=== PATIENT | male | born 1960 | race Caucasian/White ===

== ENCOUNTER 2016-12-28 12:33 | Emergency (ER) | payer OTHER ==
--- NOTE | ~2016-12-28 | CT71 ---
[facility] A Service of [facility] RADIOLOGY TEXT RESULTS PATIENT: ALAN RICHMOND LOCATION: [facility] : 62 UNIT #: [id number] AGE: [address]: Alvarado Luciano MD SEX: M ORDER DR: [id number] [facility] [address] [place], [place] [address] [id number] E MR#: [id number] #: [id number] NAME: ALAN RICHMOND : 1960 SEX: M STUDY DATE/TIME: 12/28/2016 12:44 UNIT: [facility] ROOM: STUDY DESCRIPTION: CT Head Wo Contrast Attending Physician: Alvarado Luciano M.D. Ordering Physician: Alvarado Luciano M.D. Primary Care Physician: Primary Care Physician No MEDICAL IMAGING REPORT This report is preliminary unless electronic signature is present EXAM CT head, without contrast, 12/28/2016. HISTORY Seizure 1 hour ago. MET team from EEG. Expressive aphasia from CVA. History of stroke 3 years ago. History of seizures. TECHNIQUE CT head performed skull base through vertex without intravenous contrast. This CT exam was performed with one or more of the following radiation dose reduction techniques: automatic exposure control, adjustment of mA and/or kV according to patient size, and iterative reconstruction. COMPARISON STUDIES No prior CTs of head for comparison at this institution. FINDINGS Brain stem unremarkable. Cerebellum and cerebral hemispheres show overall preservation of marcos matter-white matter differentiation. Extensive area of encephalomalacic change in the anterolateral mid to superior left frontal lobe and the mid to superior left paracentral frontal lobe in distribution of left middle and anterior cerebral arteries. There is no clear indication of acute cortical ischemia. The midline structures are nondisplaced. The ventricles, cisterns and sulci show mild to moderate generalized enlargement, consistent with generalized atrophy. No hemorrhage. No intraaxial or extraaxial mass effect. The intraorbital soft tissues are unremarkable. The visualized paranasal sinuses and mastoid air cells are clear. IMPRESSION 1. No clearly acute abnormality is seen in the brain. If the patient has ongoing neurologic symptoms, consider follow-up imaging, preferably [facility] A Service of [facility] & [facility] RADIOLOGY TEXT RESULTS PATIENT: ALAN RICHMOND LOCATION: [facility] : 62 UNIT #: [id number] AGE: [address]: Alvarado Luciano MD SEX: M ORDER DR: with MRI, if the patient is a candidate. If it would assist in management, consider seizure protocol MRI, if not previously performed. 2. Areas of chronic encephalomalacic change in the left anterior and middle cerebral artery distribution involving portions of left anterolateral mid to superior frontal lobe and left mid to superior paracentral frontal lobe. 3. Mild to moderate generalized atrophy. Dictated by... Sabino Flynn M.D. THIS IS AN ELECTRONICALLY VERIFIED REPORT Sabino Flynn M.D. at 12/29/2016 7:54 AM Isis TD: 12/28/2016 13:50 JOB #: [id number] MEDICAL IMAGING REPORT COPY
--- NOTE | ~2016-12-28 | EE ---
Unit #: [id number] #: [id number] Patient: ALAN RICHMOND [id number] [address] [address] [id number] E MR#: [id number] NAME: ALAN RICHMOND : 1960 SEX: M STUDY DATE/TIME: 12/28/2016 UNIT: [facility] ROOM: STUDY DESCRIPTION: Attending Physician: Alvarado Luciano M.D. Primary Care Physician: No Primary Care Physician NEURODIAGNOSTICS REPORT EXAM EEG. REASON FOR STUDY Seizures. TECH Naa. TECHNICAL INFORMATION This is a routine EEG performed using the 10/20 System electrode placement. Photic stimulation was performed. Hyperventilation was also performed. REPORT Throughout the entire study, the best background rhythm seen is approximately 10 Hz. This rhythm was seen in both posterior head regions symmetrically and does attenuate to eye opening and closure. Photic stimulation was performed which did not elicit any epileptiform abnormalities; however, a good photic driving response was seen. Hyperventilation was also performed which failed to reproduce any abnormal buildup. There was no sleep recorded during this EEG. Throughout the entire study, there were no electrocardiographic seizures recorded nor were there any independent epileptiform abnormalities seen. At approximately 12 minutes, it is reported that the patient began to have a seizure-like episode lasting a total of 32 seconds on the record. This is noted by the EEG techs labeling on the EEG record starting at 12 minutes. This happened at the tail end of photic stimulation that was performed at the end of the study or towards the end of the study. The patient's background rhythm does not change from baseline 10 Hz, although there is some movement artifact. There is no significant electrocardiographic seizure activity on the EEG tracing during this spell. This would indicate a nonepileptic spell. INTERPRETATION This is a normal awake EEG. A normal EEG does not rule out the possibility of (1) . The patient appears to have a nonepileptic spell. Unit #: [id number] #: [id number] Patient: ALAN RICHMOND Dictated by... Joseph Veras II., M.D. GWS/ch TD: 12/29/2016 16:21 JOB #: [id number] NEURODIAGNOSTICS REPORT X NEURODIAGNOSTICS REPORT
--- NOTE | ~2016-12-28 | EKG ---
PATIENT: ALAN RICHMOND UNIT #: [id number] Ventricular Rate: 86 BPM Atrial Rate: 86 BPM P-R Interval: 164 ms QRS Duration: 82 ms Q-T Interval: 370 ms QTC Calculation(Bezet): 442 ms P [place]: 45 degrees Calculated R [place]: -18 degrees Calculated T [place]: 43 degrees Diagnosis Line: Normal sinus rhythm Diagnosis Line: Possible Left atrial enlargement Diagnosis Line: Borderline ECG Diagnosis Line: No previous ECGs available Diagnosis Line: Confirmed by DANIEL PATTERSON MD ([id number]) on Diagnosis Line: 12/28/2016 12:14:41 PM INTERPRETING MD: KATHY
[2016-12-28 12:36] LABS: BASOPHIL% 0.7 % (0-2.5); EOSINOPHIL% 0.6 % (0.0-7.0); HEMOGLOBIN 15.1 gm/dL (13.0-16.0); LYMPHOCYTE# 1.1 X10e3 (1.0-3.5); MEAN CELL VOLUME 96.1 FL (83-96); MEAN CORPUSCULAR HEMOGLOBIN 32.2 PG (28-34); MEAN CORPUSCULAR HGB CONC 33.6 g/dL (30-36); MEAN PLATELET VOLUME 8.5 FL (6.5-11.5); MONOCYTE# 0.2 X10e3 (0-1.0); MONOCYTE% 6.7 % (3.0-12.0); NEUTROPHIL# 2.1 X10e3 (1.5-7.1); PLATELET COUNT 143 X10e3 (140-420); RED BLOOD COUNT 4.69 X10e (3.90-5.60); RED CELL DISTRIBUTION WIDTH 13.8 % (11.0-15.5); WHITE BLOOD COUNT 3.5 X10e3 (4.0-10.5)
[2016-12-28 12:37] LABS: DIFF IND NO
[2016-12-28 12:40] LABS: POC - CKMB 1.9 ng/mL (0.0-7.9); POC - TROPONIN <0.05 ng/mL (<=0.05)
[2016-12-28 13:10] LABS: ALBUMIN SERUM 4.6 g/dL (3.5-5.0); ALCOHOL BLOOD 5 mg/dL (0); ALKALINE PHOSPHATASE 43 U/L (32-92); ALT (SGPT) 51 U/L (10-40); AST (SGOT) 98 U/L (10-42); BILIRUBIN,TOTAL 0.6 mg/dL (0.2-2.0); BLOOD UREA NITROGEN 7 mg/dL (9-23); BUN/CREATININE RATIO 7.77; CALCIUM SERUM 9.1 mg/dL (8.4-10.2); CARBON DIOXIDE 22 mmol/L (22-31); CHLORIDE 103 mmol/L (100-111); CREATININE SERUM 0.9 mg/dL (0.6-1.4); GLOM FILT RATE Estimated ABOVE60 mL/min (>60); GLUCOSE FASTING 97 mg/dL (70-110); PROTEIN TOTAL SERUM 7.2 g/dL (6.0-8.3); SODIUM 138 mmol/L (135-145)
[2016-12-28 13:37] LABS: INR 1.9; PROTHROMBIN TIME (PATIENT) 20.5 SECONDS (9.6-11.5)
[2016-12-28 13:58] LABS: AMPHETAMINE NEG (NEG); BARBITURATES NEG (NEG); BENZODIAZEPINES NEG (NEG); COCAINE NEG (NEG); MARIJUANA POS (NEG); OPIATES NEG (NEG); TRICYCLIC ANTIDEPRESSANTS NEG (NEG); U METHADONE NEG (NEG)
== END 2016-12-28 13:55 | disposition home or self-care (01) ==
LOC: CED 12:33
PROVIDERS: Emergency Medicine
DX: G40.409 Other generalized epilepsy and epileptic syndromes, not intractable, without status epilepticus (principal)
CPT/HCPCS: 36415; 70450; 80053; 80307; 82553; 84484; 85025; 85610; 93005; 96361; 96374; 99284; G0480; J1953

== ENCOUNTER → 2016-12-28 | Outpatient (CLI) | payer OTHER | END | disposition home or self-care (01) | LOC: CEEG 10:59 | DX: R47.01 Aphasia (principal) | CPT/HCPCS: 82947; 95816 ==

== ENCOUNTER → 2017-01-06 | Outpatient (CLI) | payer OTHER ==
--- NOTE | ~2017-01-06 | MR17 ---
[facility] A Service of [facility] & [facility] RADIOLOGY TEXT RESULTS PATIENT: ALAN RICHMOND LOCATION: [facility] : 62 UNIT #: [id number] AGE: [address]: Joseph Veras II, MD SEX: M ORDER DR: [id number] [facility] [address] [place], [place] [address] [id number] O MR#: [id number] Acc #: [id number] NAME: ALAN RICHMOND : 1960 SEX: M STUDY DATE/TIME: 01/06/2017 13:03 UNIT: [facility] ROOM: STUDY DESCRIPTION: MR Brain WWo Contrast Attending Physician: Joseph Veras II., M.D. Referring Physician: Joseph Veras II., M.D. Ordering Physician: Joseph Veras II., M.D. Primary Care Physician: Sincere Mota M.D. MRI CENTER REPORT This report is preliminary unless electronic signature is present. EXAM MRI of the brain with and without contrast dated 01/06/2017. COMPARISON CT head without contrast dated 12/28/2016. HISTORY Patient passed out 2 weeks ago while having and EEG. Expressive aphasia. Now no new symptoms. TECHNIQUE Multisequence multiplanar imaging of the brain was obtained with and without contrast. GFR measured greater than 60. 16 mL of MultiHance was administered intravenously. FINDINGS There is diffuse parenchymal volume loss. Large area of encephalomalacic change with gliosis is seen in the left frontal operculum and adjacent left frontal lobe. There is diffuse age inappropriate parenchymal volume loss, predominately involving bifrontal parietal lobes. No acute stroke, enhancing intracranial mass, mass effect, midline shift or hydrocephalus. Thin coronal T2 sequence through the hippocampal formations do not demonstrate any significant abnormality. S-shaped nasal septal deviation is seen. Paranasal sinuses, orbits with the ocular structures are unremarkable. There is mild left mastoid mucosal thickening. IMPRESSION 1. Diffuse age inappropriate parenchymal volume loss is seen particularly in bifrontal parietal lobes. 2. Large area of encephalomalacia change and gliosis is seen in the left frontal lobe, left frontal operculum and adjacent superior aspect of the left insular cortex. It is likely from old insult like left MCA distribution stroke or other insults depending on the clinical STS. [facility] A Service of [facility] & [facility] RADIOLOGY TEXT RESULTS PATIENT: ALAN RICHMOND LOCATION: [facility] : 62 UNIT #: [id number] AGE: [address]: Joseph Veras II, MD SEX: M ORDER DR: presentation. 3. No acute abnormality. Dictated by... Jones Vazquez M.D. THIS IS AN ELECTRONICALLY VERIFIED REPORT Jones Vazquez M.D. at 01/10/2017 5:15 PM CPR/jf TD: 01/07/2017 16:19 JOB #: [id number] MRI CENTER REPORT COPY
== END | disposition home or self-care (01) ==
LOC: CMRI 12:32
DX: R47.01 Aphasia (principal); G93.89 Other specified disorders of brain
CPT/HCPCS: 70553; A9577